=== PATIENT | male | born 1935 | race Caucasian/White ===

== ENCOUNTER 2024-11-13 08:59 | Outpatient (AMB) | payer MEDICARE, SELFPAY ==
--- OUTSIDE RECORDS SUMMARY | 2019-07-30 20:00 | XMS_ITS | Continuity of Care Document ---
Author Organization [facility] Address [address] [place] [address] Phone Care Team Providers Care House Furnishings Supervisor Name Role Phone Unavailable Unavailable Unavailable Allergies, Adverse Reactions, Alerts Substance Reaction Status Criticality amoxicillin ; ; ; ; Active No Information Medications Medication Instructions Dosage Effective Dates (start - stop) Status Comments potassium chloride ER 10 mEq capsule,extended release take 1 capsule by oral route daily for 30 days - Active take 1 capsule by oral route daily for 30 days furosemide 40 mg tablet take 1 tablet by oral route daily for 90 days - Active take 1 tablet by oral route daily for 90 days Lanoxin 250 mcg (0.25 mg) tablet take 1 tablet by oral route daily for 90 days - Active take 1 tablet by oral route daily for 90 days Crestor 5 mg tablet TAKE ONE TABLET BY MOUTH EVERY OTHER DAY - Active TAKE ONE TABLET BY MOUTH EVERY OTHER DAY Atacand 16 mg tablet TAKE ONE TABLET BY MOUTH ONE TIME DAILY - Active TAKE ONE TABLET BY MOUTH ONE TIME DAILY metoprolol tartrate 100 mg tablet Take 1 tablet in the morning and 0.5 tablet in the evening for 90 days - Active Take 1 table t in the morning and 0.5 tablet in the evening for 90 days furosemide 40 mg tablet TAKE 1 TABLET (40 MG) BY ORAL ROUTE ONCE DAILY FOR 90 DAYS - Active TAKE 1 TABLET (40 MG) BY ORAL ROUTE ONCE DAILY FOR 90 DAYS tolterodine ER 2 mg capsule,extended release 24 hr take 1 capsule (2 mg) by oral route once daily Constantine-01-1900 - Active take 1 capsule (2 mg) by oral route once daily potassium chloride ER 10 mEq capsule,extended release take 1 capsule by oral route daily for 30 days - No Longer Active take 1 capsule by oral route daily for 30 days Advance Directives Directive Yes / No Effective Date File Name No Information Encounters Encounter Description Practice Location Reason(s) For Visit Diagnoses Date Provider Providers Copied on Encounter [facility], [address], [place], [place], [id number], [place] tel:[phone] No Information 0 No Information [facility], [address], [place], [place], [id number], [place] tel:[phone] No Information 9 No Information [facility], [address], [place], [place], [id number], [place] tel:[phone] No Information 9 No Information [facility], [address], [place], [place], [id number], [place] tel:[phone] No Information 8 No Information [facility], [address], [place], [place], [id number], [place] tel:[phone] CARDIOMYOPATH IN OTH DIS 8 No Information [facility], [address], [place], [place], [id number], [place] tel:[phone] Abnormal electrocardiogra m [ECG] [EKG] 8 No Information [facility], [address], [place], [place], [id number], [place] tel:[phone] No Information 8 No Information [facility], [address], [place], [place], [id number], tel:[phone] No Information 7 No Information [facility], [address], [place], [place], [id number], tel:[phone] No Information 7 No Information [facility], [address], [place], [id number], tel:[phone] No Information 5 No Information [facility], [address], [place], [place], [id number], [place] tel:[phone] Unspecified atrial fibrillationHear t failure, unspecifiedHyper lipidemia, unspecifiedNonrh eumatic mitral (valve) insufficiencyPRI M CENTRAL SLEEP APNEASTATUS CARDIAC PACEMAKERSick sinus syndrome 2 No Information [facility], [address], [place], [id number], tel:[phone] No Information 2 No Information Family History Family Member Type Diagnosis Age At Onset No Information Payers Payer name Insurance type Covered democrat ID Authoriza tion(s) No Information Social History Type Description Quantity Date Captured Comments Sex Male Smoking Status No Information Chief Complaint And Reason For Visit No Information Reason For Referral Reason For Referral No Information History Of Present Illness Encounter Date Complaint History Of Prese nt Illness No Information Functional Status Date Functional Assessmen t No Information Instructions Date Instruction Additional Infor mation No Information Assessments Type Assessment Date No Information Patient Care Teams Name Effective Dates (start - stop) Status Members No Information
[2024-11-13 09:11] VITALS: BMI 29.3
--- NOTE | 2024-11-13 09:11 | HO.SPINEOV ---
Vital Signs 11/13/24 09:11 Height 5 ft 11.5 in Weight 213 lb BMI 29.3 Intake Visit Reasons: back pain Intake Note: Mr. Lui is here today c/o low back pain. Director Network Development Required: No Allergies No Known Allergies Allergy (Verified 11/13/24 09:11) Physical Exam Vital Signs: BMI result Body Mass Index 29.3 Assessment & Plan Assessment & Plan (1) Back pain: Code(s): M54.9 - Dorsalgia, unspecified Category: Medical Plan Dear Dr Burk, Thank you for referring Mr Lui to our office today. He is an 89-year-old gentleman who has previous history of what sounds like lumbar laminectomy done at what he believes is probably [facility] about 15 years ago. He was having trouble with walking and they did the procedure and it fixed whatever issue where he was having. He is a difficult historian, might have some degree of baseline dementia. His is here with him today, but she is unable to give details either. What he has been having now is pain centered just beneath where the incision is when he sitting for any length of time. When he gets up and walks he is a little slow getting started but generally once he starts ambulating the pain goes away. He walks 3 miles on the treadmill multiple days a week without any problems. He takes no medication for this. He had been seeing Dr. Martin in [place], I am guessing this is the [place] [facility] who does injections. He believes that these might have been working for awhile, but for whatever reason there was some interruption with having them done. He is talking about having an injection done on the nerve coming up soon apparently. He is here today to be evaluated for the back pain. PMH: Abdominal aortic aneurysm, sleep apnea, AFib, status post pacemaker, cardiomyopathy, GERD, esophagitis, hyperlipidemia, hypertension, prostate cancer, status post prostatectomy, lumbar laminectomy Social hx: Quit smoking many years ago, does not drink or use any drugs Medications: Atacand, candesartan, Crestor, Detrol, digoxin, Klor-Con, Lasix, metoprolol, Singulair, potassium and Coumadin Allergies: Cipro and penicillin Physical exam: Awake alert oriented x3 but very limited with details at times, able to stand up out of the chair slowly and get any examining table independently, strength and reflexes are normal, well healed scar in the midline of his lower back, with pain just beneath to palpation Imaging review: Lumbar CT done at [facility] shows postsurgical changes at L2-3 and L3-4, what looks like 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 He has large osteophytes projecting from L2-3 and L4-5 laterally. There are varying degrees of foraminal stenosis. 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 Impression: 89-year-old gentleman with a previous history of lumbar laminectomy done at [facility], he was not sure. It was done for trouble walking and that seems to have been fixed with the operation. He has been having pain and tenderness over the area just beneath the incision when he sitting for any length of time. He has no problems walking or being upright. He is a little slow getting out of a chair. I told him this could be related to musculature near the area of the scar tissue of the surgery. He does have diffuse disc degeneration with moderate to severe stenosis at L4-5 but does not seem to be having any axial back pain or claudicating leg symptoms, so these are mostly incidental findings. He has been working with Dr. Martin in [place] and that seems to be going okay. He apparently has an upcoming shot on 1 of the nerves in the lower lumbar spine. I would just encourage him to continue to follow up with his pain management doctor. Certainly does not need any surgery. If he develops claudicating leg symptoms obviously we can have a different discussion. I updated him and his who were here together today on his status and will be happy to see him back at any point down the road if something changes. Thank you for allowing us to care for your patient. The total time spent with this visit with this patient was 45 minutes reviewing history, physical exam, lumbar CT imaging review, and implementation of treatment plan or further diagnostic testing Tae Goldberg MD,PhD [facility] Coding Level of Care Code New Pt Level 4 (42110) Diagnoses Back pain M54.9
--- OUTSIDE RECORDS SUMMARY | 2024-11-13 09:19 | XMS_ITS | Encounter Summary ---
Author Organization [facility] Address [address] [place] [address] Care Team Providers Care Brand Analyst Name Role Phone Francis Burk MD Primary Care Provider [phone] Encounter Details Date Type Department Care Team (Latest Contact Info) Description 11/07/2024 Anticoagulation - Warfarin Visit [facility] [address] [place] [address] [address] [place] [phone] Tam Rodriguez MD [address] [place] [address] [address]IVE [address] [place] [address] Atrial fibrillation, unspecified type (CMS/HCC V24, CMS/HCC V28) (Primary Dx) Social History Tobacco Use Types Packs/Day Years Used Date Smoking Tobacco: Never Smokeless Tobacco: Never Alcohol Use Standard Drinks/Week Comments Yes 0 (1 standard drink = 0.6 oz pur e alcohol) Sex and Gender Information Value Date Recorded Sex Assigned at Not on file Legal Sex Male 11:56 PM EST Gender Identity Not on file Sexual Orientation Not on file documented as of this encounter Progress Notes * Mark Fletcher MA - 11/07/2024 11:27 AM EDT Left voice message with instructions * Mark Fletcher MA - 11/07/2024 11:27 AM EDT Patient aware of instructions documented in this encounter Plan of Treatment Upcoming Encounters Date Type Department Care Team (Late st Contact Info) Description 12/04/2024 8:20 AM EDT Office Visit [facility] [address] [place] [address] Dr [address] [place] [address] Tam Rodriguez MD [address] [place] [address] [address] [place] [address] 01/24/2025 9:30 AM EDT Ancillary Procedure [facility] [address] [place] [address] documented as of this encounter Visit Diagnoses Diagnosis Atrial fibrillation, unspecified type (CMS/HCC V24, CMS/HCC V28)- Primary Encounter for adjustment or management of cardiac device documented in this encounter Care Teams Brand Analyst Relationship Specialty Start Date End Date Francis Burk MD [address] [address] PCP - General Club Room Attendant 11/01/12 documented as of this encounter
--- OUTSIDE RECORDS SUMMARY | 2024-11-13 09:19 | XMS_ITS | Data Portability ---
Author Organization [place] [facility], [facility] Address [address] [place] [address] Care Team Providers Care Telephone Clerk Telegraph Office Name Role Phone ERICK NAVARRETE Primary Care Provider [phone] Assessment Encounter Date Assessment Date Assessment LastModified by Organization Details LastModified Time 11/06/2024 11/06/2024 89-year-old male presents today for evaluation of his throat with symptoms including intermittent cough and phlegm in the morning. He had an episode about 2 months ago where he coughed up something red, but no episodes since then, without any associated sore throat, or otalgia. Flexible laryngoscopy does not reveal any lesion or infection. There is some nonspecific inflammatory changes. No bleeding or blood clot. There is some stranding mucus. Reassurance given. He could could try fluticasone. He has concerns about his hearing. He wears binaural amplification from [employer]. There is no obstructive cerumen or effusion on exam. I counseled him we could assess further with audiometric testing at future visit. [email or web address] Not available 11/09/2024 08:37:56 Plan of Treatment Reminders Order Date Submit Date Provider Last Modified By Organization Details Last Modified Time Details Appointments Hearing Test 2024 02:30P M Hearing Test Not available Not available Not available Establish ed 15 2024 03:00P M VASQUEZ SESAY MD Not available Not available Not available Lab None recorded. Referral None recorded. Procedures None recorded. Surgeries None recorded. Imaging None recorded. Medication Orders None recorded. Patient TargetsNo targets recorded. Patient InstructionsNo instructions recorded. Reason for Referral None Reported. 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 Other specified disorders of temporoman dibular joint; Note: Date Diagnosed: 11/12/2017 3:46 PM (M26.69) Not Available [facility] 4 02:45:26 Chronic cough 70122933 Active 2024 VASQUEZ SESAY MD [address] [facility],[place] [address], [facility] [place], [address] , [facility] 5 08:34:20 Gastroeso phageal reflux disease without esophagit is 054638044 Active 2024 VASQUEZ SESAY MD [address] [facility],[place] [address], [facility] [place], [address] , [facility] 5 08:34:33 Problem Notes None recorded. Procedures Surgical History Date Name Laterality Status Provider Name and Address Organization Details Recorded Time 11/07/19 25 Fiberoptic Laryngoscopy (Comprehensive) completed VASQUEZ SESAY MD [address] [facility],[place] [address], [place], [address], [facility] 11/09/2024 08:34:06 Imaging Results None recorded. Procedure Notes None recorded. Medical Equipment None Reported. Allergies Allergen ID Allergen Name Allergen Category Reaction Reaction Severity Criticality Documentation Date Start Date Code Code System Note Provider Name and Address Organization Details Recorded Time 745377 amoxicill in medicatio n other Not available Not available 09/21/2023 723 RxNorm React ion: unkno wn, unspe cifie d;; Not Available [facility] 4 01:08:19 Medications Name Sig Start Date Stop Date Status Note LastModified by Organization Details LastModified Time furosemid e 40 mg tablet TAKE 1 TABLET BY MOUTH EVERY DAY active Not Available Not Available No t Available Klor-Con 10 mEq tablet,ex tended release TAKE 1 TABLET BY MOUTH THREE TIMES DAILY WITH MEALS AND 6 OUNCES OF WATER (SWALLOW WHOLE) active Not Available Not Available No t Available metoprolo l tartrate 100 mg tablet TAKE 1 TABLET BY MOUTH EVERY MORNING AND 1/2 TABLET EVERY EVENING active Not Available Not Available No t Available hydrocodo ne 5 mg-acetam inophen 325 mg tablet TAKE 1 TABLET BY MOUTH EVERY 6 HOURS NEEDED FOR ACUTE PAIN 11/06 completed Not Available Not Available Not Available amlodipin e 2.5 mg tablet TAKE 1 TABLET BY MOUTH EVERY DAY active Not Available Not Available No t Available digoxin 250 mcg (0.25 mg) tablet TAKE 1 TABLET BY MOUTH EVERY DAY active Not Available Not Available No t Available potassium 99 mg tablet 11/06 completed Medicati on ID: [id number] B rand Name: faustina granda Send Method: E-Prescr ibed Sub s Allowed: subs OK Medic ationGen ericName : faustina granda Not Available Not Available Not Available warfarin 5 mg tablet TAKE 1-2 TABLETS BY MOUTH DAILY DIRECTED BY [facility] active Not Available Not Available No t Available candesart an 16 mg tablet TAKE 1/2 OF A TABLET (8 MG TOTAL) BY MOUTH 1 TIME EACH DAY. active Not Available Not Available No t Available gabapenti n 300 mg capsule 11/06 completed Medicati on ID: [id number] D uration Value: 30 Brand Name: gabapent in Send Method: E-Prescr ibed Sub s Allowed: subs OK Speci al Instruct ion: TAKE ONE CAPSULE BY MOUTH AT BEDTIME NEEDED M abiodun Salgado Name: gabapent in Not Available Not Available Not Available [facility] [facility] 10 mg tablet TAKE 1 TABLET BY MOUTH EVERYDAY AT BEDTIME active Not Available Not Available No t Available doxycycli ne hyclate 100 mg tablet TAKE 1 TABLET BY MOUTH TWICE A DAY active Not Available Not Available No t Available rosuvasta tin 5 mg tablet TAKE 1 TABLET BY MOUTH EVERY OTHER DAY active Not Available Not Available No t Available potassium chloride ER 10 mEq tablet,ex tended release(p art/cryst ) TAKE 1 TABLET BY MOUTH DAILY WITH MEALS AND LIQUID (DON'T CHEW OR CRUSH) 11/06 completed Not Available Not Available Not Available carvedilo l 11/06 completed Medicati on ID: [id number] B rand Name: carvedil ol Send Method: E-Prescr ibed Sub s Allowed: subs OK Medic ationGen ericName : carvedil ol Not Available Not Available Not Available Vitals Date Recorded Body height Body mass index (BMI) Body weight Provider Name and Address Organization Details Last Updated DateTime 11/06/2024 181.61 cm 29.3 kg/m2 29396.17 g Lala Powersnicolle [place] - [facility] 11/06/2024 11:01:20 Social History None recorded. Functional Status None recorded. Mental Status None recorded. Family History Nothing Reported. Medical History Condition Response Heart Problems Y Hyperlipidemia Y Cancer Y Hypertension Y Past Encounters Encounter ID Performer Location Encounter Start Date Encounter Closed Date Diagnosis/Indication Diagnosis SNOMED-CT Code Diagnosis ICD10 Code Diagnosis Note [id number] VASQUEZ SESAY MD [facility] [address] [address] 11/06/2024 10:44:54 11/06/2024 11:26:20 Chronic cough 49923876 R05.3 Gastroesop hageal reflux disease without esophagitis 318454634 K21.9 Health Concerns Section Related Observation LastModified by Organization Detai ls LastModified Time None Recorded Concern Status LastModified by Organization Details LastModified Time None Recorded Advance Directives Directive None Recorded Payers Insurance Date Sequence Insurance Name Policy Number Policy Astudillo Covered Member ID Astudillo Member ID Guarantor Name 11/06/2024 1 MEDICARE B-[place]: [facility] [employer] Skip Sommer [id number] Skip Sommer 11/06/2024 2 BCBS-ID:[facility] PLAN F (MEDICARE SUPPLEMENT) [id number] Skip Espinoza Ros [id number] Skip Sommer 11/06/2024 1 MEDICARE B-[place]: [facility] Skip Sommer [id number] Skip Sommer Notes Date Note Type Note Provider Name and Address Organization Details Recorded Time 11/06/2024 text/html 89 yo M presents for evaluation of his throat occasional coughing fitin the AM seems to be the worse, spits up 4-5 times, feels sticky and white if eat something crumbly like a cookie, feels like it goes down the trachea no painno ear painno heartburnno allergies no recent swallow studycoughed up a little something that was red 2 months ago ?hole from endoscopy GI notes reviewed, most recent EGD a few years ago, small hiatal hernia VASQUEZ SESAY MD [address] [place] [address], [place], [address], [facility] - [facility] 11/09/2024 08:38:18
--- OUTSIDE RECORDS SUMMARY | 2024-11-13 09:19 | XMS_ITS | Clinical Summary ---
Author Organization [facility] Address [address] [place] [address] Care Team Providers Care Family Law Paralegal Name Role Phone Unavailable Primary Care Provider Unavailabl e Encounters Date Type Department Care Team Description 09/26/2024 Transcribe Orders [facility]IMARY [facility] Francis Burk MD Dysphagia, unspecified type (Primary Dx); Change in voice from Last 3 Months Social History Tobacco Use Types Packs/Day Years Used Date Smoking Tobacco: Never Assessed Sex and Gender Information Value Date Recorded Sex Assigned at Not on file Legal Sex Male 1:53 PM EDT Gender Identity Not on file Sexual Orientation Not on file Plan of Treatment Health Maintenance Due Date Last Done Comments DTaP/Tdap/Td Vaccines (1 - Tdap) 1954 Pneumococcal Vaccines 50+ (1 of 1 - PCV) 1985 Zoster (Shingles) Vaccine (1 of 2) 1985 RSV Vaccine 60 years and old er and Patients (1 - 1-dose 75+ series) 2010 COVID-19 Vaccine (2023-2 5 season) 2024 Hepatitis B Vaccines Aged Out No long er eligible based on patient's age to complete this topic
== END 2024-11-13 10:45 | disposition home or self-care (01) ==
LOC: HO.HNS 08:59
PROVIDERS: PCP Internal Medicine; Referring Provider Internal Medicine; Visit Provider Physician Assistant
DX: M54.9 Dorsalgia, unspecified (principal)
CPT/HCPCS: 99204

== ENCOUNTER → 2024-11-13 08:59 | Outpatient (BNVA) | payer MEDICARE, SELFPAY | PROVIDERS: PCP Internal Medicine; Referring Provider Internal Medicine; Visit Provider Physician Assistant | DX: M54.9 Dorsalgia, unspecified (principal); Z79.01 Long term (current) use of anticoagulants; Z79.899 Other long term (current) drug therapy | CPT/HCPCS: 99202 ==